=== PATIENT | female | born 1945 | race Caucasian/White ===

== ENCOUNTER 2018-02-28 08:18 | Emergency (ER) | payer MEDICARE, BC ==
--- NOTE | 2018-02-28 10:35 | RAD ---
INDICATION: Swelling right leg, history of remote DVT. COMPARISON: Comparison is made with a prior study from March 09, 2010. TECHNIQUE: Multiple real-time, color flow and Doppler tracings of the right lower extremity were obtained. FINDINGS: The common femoral, femoral, profunda femoral and popliteal veins all demonstrate normal compressibility, augmentation with compression and phasic response with respiration. The posterior tibial and peroneal veins demonstrate normal compressibility and augmentation with compression. There is localized nonocclusive thrombus in the in the greater saphenous vein distal to the knee which appears similar to the prior exam most consistent with chronic superficial venous thrombosis. There is prominent venous reflux throughout the greater saphenous vein of greater than 3 seconds duration. IMPRESSION: 1. NO EVIDENCE FOR DEEP VENOUS THROMBOSIS. 2. CHRONIC SUPERFICIAL VENOUS THROMBUS IN THE GREATER SAPHENOUS VEIN IN THE LOWER LEG AND PROMINENT VENOUS REFLUX THROUGHOUT THE GREATER SAPHENOUS VEIN.
--- NOTE | 2018-02-28 10:48 | ED ---
Lower Extremity - HPI Summary HPI Summary: This is [facility] documenting for attending Rex Dickerson MD. Pt is a 72 y/o F c/o RLE pain onset ~2 weeks ago. Pain is described as an ache and rated a 5/10. Assoc Sx: RLE pain, cramping. Denies: redness, swelling, SOB. Aggr. Factors: ambulation. Pt notes that she walks a lot and thinks that she just overused her RLE. PMHx: DVT. She reports having done PT for her R achilles but starter I, Dr. Dickerson, personally performed the services described in this documentation as scribed in my presence and it is both accurate and complete. - History of Current Complaint Chief Complaint: EDExtremityLower Stated Complaint: RT LEG PAIN Time Seen by Provider: 02/28/18 08:37 Hx Obtained From: Patient Onset of Pain: Days Onset/Duration: Weeks - 2 weeks Severity Currently: Moderate Pain Intensity: 5 Pain Scale Used: 0-10 Numeric Timing: Constant Location: Is Diffuse Character Of Pain: Aching Associated Signs And Symptoms: Positive: Other - NEG: SOB POS: RLE pain/ cramping. Negative: Swelling, Redness - Allergies/Home Medications Allergies/Adverse Reactions: Allergies Allergy/AdvReac Type Severity Reaction Status Date / Time ciprofloxacin [From Cipro] Allergy Severe Anaphylatic Verified 02/28/18 08:42 Shock Fish Containing Products Allergy Severe Anaphylatic Verified 02/28/18 08:42 Shock shellfish derived Allergy Severe Anaphylatic Verified 02/28/18 08:42 Shock Sulfa (Sulfonamide Allergy Severe Anaphylatic Verified 02/28/18 08:42 Antibiotics) Shock Latex, Natural Rubber Allergy Mild Rash And Verified 02/28/18 08:42 Itching doxycycline Allergy Eyes Verified 02/28/18 09:08 Itchy/Swollen/Red/Watery erythromycin base Allergy Swelling Verified 02/28/18 08:40 nalidixic acid [From NegGram] Allergy Unknown Verified 02/28/18 08:31 Reaction Details norfloxacin Allergy Unknown Verified 02/28/18 08:41 Reaction Details Home Medications: Home Medications Letrozole 2.5 mg PO DAILY 02/28/18 [History Confirmed 02/28/18] Rivaroxaban TAB(*) [Xarelto 20 mg] 20 mg PO DAILY 02/28/18 [History Confirmed ] PMH/Surg Hx/FS Hx/Imm Hx Endocrine/Hematology History: Reports: Hx Thyroid Disease - THYROIDECTOMY-ON MEDICATION FOR Denies: Hx Diabetes Cardiovascular History: Reports: Hx Peripheral Vascular Disease - VARICOSE VEINS , Other Cardiovascular Problems/Disorders - 2008-RIGHT KNEE BLOOD CLOT Denies: Hx Hypertension, Hx Pacemaker/ICD Respiratory History: Reports: Hx Sleep Apnea - "MARGINAL" GI History: Reports: Hx Irritable Bowel - STARTED 2 YEARS AGO History: Denies: Hx Renal Disease Musculoskeletal History: Reports: Hx Arthritis - BOTH KNEES, LEFT SHOULDER, Hx Bursitis - ?RIGHT HIP Denies: Hx Rheumatoid Arthritis, Hx Osteoporosis Sensory History: Reports: Hx Contacts or Glasses - READING GLASSES Denies: Hx Hearing Aid Opthamlomology History: Reports: Hx Contacts or Glasses - READING GLASSES Psychiatric History: Denies: Hx Panic Disorder - Cancer History Cancer Type, Location and Year: BREAST Hx Chemotherapy: Yes Hx Radiation Therapy: Yes - Surgical History Surgery Procedure, Year, and Place: 2 C-SECTIONS. APPENDECTOMY. 2008- LEFT BREAST LUMPECTOMY. 03/2016- Rt BREAST LUMPECTOMY. THYROIDECTOMY Hx Anesthesia Reactions: No Infectious Disease History: No Infectious Disease History: Denies: Traveled Outside the [place] in Last 30 Days - Family History Known Family History: Positive: Cardiac Disease Negative: Hypertension, Diabetes - Social History Occupation: Retired Lives: With Family Alcohol Use: None Substance Use Type: Reports: None Smoking Status (MU): Never Smoked Tobacco Review of Systems Negative: Fever, Chills, Fatigue, Skin Diaphoresis Negative: Photophobia, Blurred Vision, Diplopia, Drainage, Erythema Negative: Epistaxis, Dental Pain, Sore Throat, Ear Ache, Nasal Discharge Negative: Palpitations, Chest Pain Negative: Shortness Of Breath, Cough Negative: Abdominal Pain, Vomiting, Diarrhea, Nausea Negative: burning, dysuria, discharge, frequency, flank pain, hematuria, incontinence, pain, urgency Positive: Other - POS: RLE pain/cramping.. Negative: Arthralgia, Myalgia, Decreased ROM, Edema Negative: Rash, Bruising Negative: Headache, Weakness, Paresthesia, Numbness, Syncope, Slurred Speech Negative: Anxious, Depressed All Other Systems Reviewed And Are Negative: Yes Physical Exam - Summary Physical Exam Summary: Constitutional: Well-developed, Well-nourished, Alert. (-) Distressed Skin: Warm, Dry HENT: Normocephalic; Atraumatic Eyes: Conjunctiva normal Neck: Musculoskeletal ROM normal neck. (-) JVD, (-) Stridor, (-) Tracheal deviation Cardio: Rhythm regular, rate normal, Heart sounds normal; Intact distal pulses; The pedal pulses are 2+ and symmetric. Radial pulses are 2+ and symmetric. (-) Murmur Pulmonary/Chest wall: Effort normal. (-) Respiratory distress, (-) Wheezes, (-) Rales Abd: Soft, (-) epigastric tenderness, (-) Distension, (-) Guarding, (-) Rebound Musculoskeletal: (-) Edema Lymph: (-) Cervical adenopathy Neuro: Alert, Oriented x3 Psych: Mood and affect Normal RLE: Varicose veins, no sign of swelling, no tenderness, mild pain with dorsiflexion of ankle at the Achilles. Triage Information Reviewed: Yes Vital Signs On Initial Exam: Initial Vitals Temp Pulse Resp BP Pulse Ox 98 F 67 18 139/81 100 02/28/18 08:20 02/28/18 08:20 02/28/18 08:20 02/28/18 08:20 02/28/18 08:20 Vital Signs Reviewed: Yes Diagnostics - Vital Signs Vital Signs Temp Pulse Resp BP Pulse Ox 02/28/18 08:20 98 F 67 18 139/81 100 - Laboratory Lab Statement: Any lab studies that have been ordered have been reviewed, and results considered in the medical decision making process. - Ultrasound No standard instances Ultrasound Interpretation: No Acute Changes - IMPRESSION: 1. NO EVIDENCE FOR DEEP VENOUS THROMBOSIS. 2. CHRONIC SUPERFICIAL VENOUS THROMBUS IN THE GREATER SAPHENOUS VEIN IN THE LOWER LEG AND PROMINENT VENOUS REFLUX THROUGHOUT THE GREATER SAPHENOUS VEIN. Ultrasound Interpretation Completed By: Radiologist - Report has been reviewed by provider and radiologist. Lower Extremity Course/Dx - Course Course Of Treatment: Pt was seen by provider and will be discharged home. - Diagnoses Provider Diagnoses: Achilles tendinitis Discharge - Sign-Out/Discharge Documenting (check all that apply): Patient Departure - Discharge Plan Condition: Stable Disposition: HOME Patient Education Materials: Achilles Tendinitis (ED) Referrals: John Clark MD [Primary Care Provider] - 2 Days Additional Instructions: RETURN TO THE EMERGENCY DEPARTMENT FOR CHANGING OR WORSENING SYMPTOMS
[2018-02-28 11:32] VITALS: BP 144/91
== END 2018-02-28 11:31 | disposition home or self-care (01) ==
LOC: ED 08:18
DX: M76.61 Achilles tendinitis, right leg (principal); I82.811 Embolism and thrombosis of superficial veins of right lower extremity; E07.9 Disorder of thyroid, unspecified; Z86.718 Personal history of other venous thrombosis and embolism; Z79.01 Long term (current) use of anticoagulants; Z85.3 Personal history of malignant neoplasm of breast; Z88.2 Allergy status to sulfonamides; Z88.1 Allergy status to other antibiotic agents; Z91.013 Allergy to seafood
CPT/HCPCS: 99282